=== PATIENT | female | born 1960 | race Caucasian/White ===

== ENCOUNTER 2017-03-11 19:54 | Emergency (ER) | payer BC, OTHER ==
[2017-03-11 20:14] VITALS: BP 120/70; PULSE 58; RESP 16; TEMP 97.9; O2SAT 97
--- NOTE | 2017-03-11 20:30 | EDPHY ---
H & P Time Seen by Provider: 03/11/17 20:13 HPI/ROS: CHIEF COMPLAINT: Left index finger laceration HISTORY OF PRESENT ILLNESS: 56-year-old female, right-hand dominant, was cutting alignment sustained laceration to her left index finger radial aspect distal phalanx. Currently hemostatic. Occurred earlier tonight. Tetanus is up -to-date PHYSICAL EXAM (Prior to examination, patient consented to physical exam, hands were washed and my usual and customary physical exam procedures followed) 1) GENERAL: Well-developed, well-nourished, alert and oriented. Appears to be in no acute distress. 2) HEAD: Normocephalic 3) HEENT: sclera anicteric 4) LUNGS: Breathing comfortably. 5) SKIN: on the left 2nd digit distal phalanx radial aspect she has a less than 1 cm laceration which is superficial, does not extend the nail bed, is hemostatic, shows no signs of infection. Negative kanavel. Full sensation distally. Flexor extensor function intact. Smoking Status: Never smoked Constitutional: Initial Vital Signs Temperature (C) 36.6 C 03/11/17 20:12 Heart Rate 58 L 03/11/17 20:12 Respiratory Rate 16 03/11/17 20:12 Blood Pressure 120/70 03/11/17 20:12 O2 Sat (%) 97 03/11/17 20:12 O2 Delivery Mode Room Air Allergies/Adverse Reactions: adhesive Allergy (Verified 03/11/17 20:11) codeine Allergy (Verified 03/11/17 20:11) Opioids - Morphine Analogues Allergy (Verified 03/11/17 20:11) Home Medications: Medication Instructions Recorded Tamoxifen Citrate 03/11/17 MDM/Departure - MDM ED Course/Re-evaluation: Given the small size this laceration, is hemostatic, I recommended healing via secondary intention. Wound has been cleansed, dressed with to go as. Patient is comfortable with this plan. Usual and customary wound precautions and instructions provided - Depart Disposition: Home, Routine, Self-Care Clinical Impression: Laceration of left index finger Qualifiers: Encounter type: initial encounter Damage to nail status: without damage Foreign body presence: without foreign body Qualified Code(s): S61.211A - Laceration without foreign body of left index finger without damage to nail, initial encounter Condition: Good Instructions: Laceration (ED) Additional Instructions: Return to the ER if you develop redness, swelling, discharge, warmth to the wound, red streaks going up your arm, or any other symptoms that concern you. Referrals: MATT FERRIS [Other] - 2-3 days, call for appt.
== END 2017-03-11 20:49 | disposition home or self-care (01) ==
DX: S61.211A Laceration without foreign body of left index finger without damage to nail, initial encounter (principal); W45.8XXA Other foreign body or object entering through skin, initial encounter